=== PATIENT | male | born 1950 | race Caucasian/White ===

== ENCOUNTER 2018-07-23 14:34 | Emergency (ER) | payer MEDICARE, OTHER ==
[2018-07-23 14:46] VITALS: BP 131/71
--- NOTE | 2018-07-23 15:03 | ED Physician Documentation ---
History of Present Illness - Stated complaint Stated Complaint: F/O R EAR - Chief complaint Chief Complaint: General - History obtained from History obtained from: Patient - History of Present Illness Timing: Today (There is a piece of rubber from his hearing aid stuck in his right ear canal.) Review of Systems Constitutional: reports: Reviewed and negative Ears: reports: Loss of hearing. denies: Ear pain, Drainage/discharge Nose: denies: Rhinorrhea / runny nose, Congestion PD PAST MEDICAL HISTORY - Present Medications Home Medications: Ambulatory Orders Medication Instructions Recorded Confirmed Atorvastatin [Lipitor] 10 mg pe 07/23/18 Chlorthalidone 25 mg 07/23/18 Doxazosin [Cardura] 1 mg PO ONCE 07/23/18 07/23/18 Omeprazole 20 mg PO 07/23/18 07/23/18 - Allergies Allergies/Adverse Reactions: Allergies Allergy/AdvReac Type Severity Reaction Status Date / Time Penicillins Allergy Unknown Verified 07/23/18 14:46 PD ED PE NORMAL - Vitals Vital signs reviewed: Yes - General General: Alert and oriented X 3, No acute distress - HEENT HEENT: Other (Clear piece of rubber stuck in the mid ear right canal in the right) - Neck Neck: Supple, no meningeal sign, No bony TTP - Neuro Neuro: Alert and oriented X 3, Normal speech Results - Vitals Vitals: Vital Signs - 24 hr 07/23/18 14:44 Temperature 37.1 C Heart Rate 69 Respiratory 18 Rate Blood Pressure 131/71 H O2 Saturation 99 Oxygen O2 Source Room air Departure - Departure Disposition: 01 Home, Self Care Clinical Impression: Foreign body in right ear Qualifiers: Encounter type: initial encounter Qualified Code(s): T16.1XXA - Foreign body in right ear, initial encounter Condition: Good Record reviewed to determine appropriate education?: Yes Instructions: ED Foreign Body Ear Canal
== END 2018-07-23 15:03 | disposition home or self-care (01) ==
LOC: ED 14:34
DX: T16.1XXA Foreign body in right ear, initial encounter (principal); X58.XXXA Exposure to other specified factors, initial encounter; Z97.4 Presence of external hearing-aid
CPT/HCPCS: 99281; 99282